=== PATIENT | female | born 1960 | race Caucasian/White ===

== ENCOUNTER → 2018-02-20 | Outpatient (CLI) | payer OTHER ==
[2018-02-20 07:21] LABS: EOS # 0.1 (0.04-0.40); EOS % 1.3 % (1.0-5.0); HEMATOCRIT 41.3 % (37.0-47.0); HEMOGLOBIN 14.1 g/dL (12.5-16.0); MEAN CELL VOLUME 88 fl (78-100); MEAN CORPUSCULAR HEMOGLOBIN 30 pg (27-31); MEAN CORPUSCULAR HGB CONC 34 g/dL (33-37); MEAN PLATELET VOLUME 9.9 fl (7.4-10.4); MONO # 0.6 (0.20-0.80); NEU # 4.5 (1.40-6.50); PLATELET COUNT 205 K/mm3 (130-400); RED BLOOD COUNT 4.72 M/mm3 (4.10-5.30); RED CELL DISTRIBUTION WIDTH 13.3 % (11.5-14.5); WHITE BLOOD COUNT 8.3 K/mm3 (4.8-10.8)
[2018-02-20 07:35] LABS: ALBUMIN 4.1 g/dL (3.5-5.0); BUN/CREATININE RATIO 22.9 (6.0-26.0); POTASSIUM 3.8 mmol/L (3.6-5.0); TOTAL BILIRUBIN 0.4 mg/dL (0.2-1.3); TOTAL PROTEIN 7.1 g/dL (6.3-8.2)
== END ==
LOC: LAB 07:07
PROVIDERS: Family Medicine
DX: Z00.00 Encounter for general adult medical examination without abnormal findings (principal)

== ENCOUNTER → 2018-04-19 | Outpatient (CLI) | payer BC | LOC: MAMMO 15:52 | DX: Z12.31 Encounter for screening mammogram for malignant neoplasm of breast (principal) ==

== ENCOUNTER → 2020-05-14 | Outpatient (CLI) | payer BC | LOC: MAMMO 09:49 | DX: Z12.31 Encounter for screening mammogram for malignant neoplasm of breast (principal) ==

== ENCOUNTER → 2021-05-27 | Outpatient (CLI) | payer BC | LOC: MAMMO 12:55 | DX: Z12.31 Encounter for screening mammogram for malignant neoplasm of breast (principal) ==

== ENCOUNTER → 2022-01-20 | Outpatient (CLI) | payer BC | LOC: RAD 10:32 | DX: M17.11 Unilateral primary osteoarthritis, right knee (principal) ==

== ENCOUNTER → 2022-05-26 | Outpatient (CLI) | payer BC | LOC: MAMMO 13:00 | DX: Z12.31 Encounter for screening mammogram for malignant neoplasm of breast (principal); N64.89 Other specified disorders of breast ==

== ENCOUNTER → 2024-06-20 | Outpatient (CLI) | payer MEDICARE, BC | LOC: MAMMO 09:58 | DX: Z12.31 Encounter for screening mammogram for malignant neoplasm of breast (principal) ==